=== PATIENT | male | born 1960 | race Caucasian/White ===

== ENCOUNTER 2016-09-04 15:24 | Emergency (ER) | payer MEDICAID ==
[2016-09-04 15:27] VITALS: RESP 16; O2SAT 91
[2016-09-04] MEDS ORDERED: NS 1,000 ML IV ONE (15:39)
--- NOTE | 2016-09-04 15:52 | EDPHY ---
H & P Stated Complaint: seizure today HX of SZ takes keppra Time Seen by Provider: 09/04/16 15:29 HPI/ROS: CHIEF COMPLAINT: Brief episode of altered consciousness HISTORY OF PRESENT ILLNESS: The patient presents to the emergency department after he reportedly had a episode of loss of consciousness while driving in the car with his girlfriend. There was no seizure activity observed although the patient does have a history of seizure disorder. The patient reports he has been compliant with his daily Keppra. The patient also has a history of alcohol dependence. The patient reports minimal alcohol consumption today. The patient denies any complaints of chest pain or shortness of breath. He has no complaints of dyspnea. He denies additional complaints. REVIEW OF SYSTEMS: A comprehensive 10 point review of systems is otherwise negative aside from elements mentioned in the history of present illness. Source: Patient Exam Limitations: No limitations - Personal History Current Tetanus/Diphtheria Vaccine: Unsure Current Tetanus Diphtheria and Acellular Pertussis (TDAP): Unsure Tetanus Vaccine Date: 2012 - Medical/Surgical History Hx Asthma: No Hx Chronic Respiratory Disease: No Hx Diabetes: No Hx Cardiac Disease: Yes Hx Renal Disease: No Hx Cirrhosis: No Hx Alcoholism: Yes Hx HIV/AIDS: No Hx Splenectomy or Spleen Trauma: No Other PMH: Gout, HTN, PE, ?SEIZURE/SYNCOPE, ? OLD STROKE, CHRONIC CIRRHOSIS/ HEPATITIS PANCREATITIS - Social History Smoking Status: Never smoked - Physical Exam Exam: General Appearance: Alert, alcohol on breath, no acute distress, non postictal Eyes: Pupils equal and round no pallor or injection ENT, Mouth: Mucous membranes moist, no tongue bite Respiratory: There are no retractions, lungs are clear to auscultation Cardiovascular: Regular rate and rhythm Gastrointestinal: Abdomen is soft and nontender, no masses, bowel sounds normal Neurological: A&O, normal motor function, normal sensory exam, normal cranial nerves Skin: Warm and dry, no rashes Musculoskeletal: Neck is supple nontender Extremities: symmetrical, full range of motion Constitutional: Initial Vital Signs Temperature (C) 36.8 C 09/04/16 15:25 Heart Rate 77 09/04/16 15:25 Respiratory Rate 16 09/04/16 15:25 Blood Pressure 133/91 H 09/04/16 15:25 O2 Sat (%) 91 L 09/04/16 15:25 O2 Delivery Mode Room Air Allergies/Adverse Reactions: No Known Allergies Allergy (Verified 11/29/15 04:25) Home Medications: Medication Instructions Recorded Atorvastatin Calcium 11/28/15 Indomethacin 11/28/15 Keppra 11/28/15 LEVETIRACETAM 11/28/15 Levetiracetam 11/28/15 Lisinopril 11/28/15 Protonix 11/28/15 Medical Decision Making - Diagnostics EKG Interpretation: EKG: Complete interpretation has been separately recorded in the [employer] archive. Summary impression: Sinus rhythm, rate 73 ED Course/Re-evaluation: The patient presents to the ED after a brief episode of altered consciousness. In the ED, the patient was not postictal. He had a strong smell of alcohol on his breath. The patient's blood alcohol level was over 0.3. The patient's laboratory studies are within normal limits and specifically demonstrate no evidence of an acidosis. The patient's EKG demonstrates no evidence of an arrhythmia. 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 I do feel the patient can be safely discharged home. He will be driven by his girlfriend who has not been drinking today. I feel the etiology of the patient' s presentation today is undoubtedly secondary to his alcohol consumption. I find his neurologic examination to be normal. There is no evidence of any traumatic injury today. The patient will follow up as scheduled with his primary care provider and neurologist. The patient is currently working on his alcoholism and is motivated to decrease his dependence on that drug. Differential Diagnosis: Differential diagnosis considered includes alcohol intoxication, arrhythmia, metabolic abnormality, seizure - Data Points Laboratory Results: Laboratory Results 09/04/16 16:00 09/04/16 16:00 09/04/16 16:00 WBC 4.29 10^3/uL (3.80-9.50) RBC 4.21 L 10^6/uL (4.40-6.38) Hgb 15.0 g/dL (13.7-17.5) Hct 41.4 % (40.0-51.0) MCV 98.3 fL (81.5-99.8) MCH 35.6 H pg (27.9-34.1) MCHC 36.2 g/dL (32.4-36.7) RDW 13.0 % (11.5-15.2) Plt Count 180 10^3/uL (150-400) MPV 9.4 fL (8.7-11.7) Neut % (Auto) 41.8 % (39.3-74.2) Lymph % (Auto) 50.1 H % (15.0-45.0) [facility] % (Auto) 6.5 % (4.5-13.0) Eos % (Auto) 0.5 L % (0.6-7.6) Baso % (Auto) 0.9 % (0.3-1.7) Nucleat RBC Rel Count 0.5 H % (0.0-0.2) Absolute Neuts (auto) 1.79 10^3/uL (1.70-6.50) Absolute Lymphs (auto) 2.15 10^3/uL (1.00-3.00) Absolute Monos (auto) 0.28 L 10^3/uL (0.30-0.80) Absolute Eos (auto) 0.02 L 10^3/uL (0.03-0.40) Absolute Basos (auto) 0.04 10^3/uL (0.02-0.10) Absolute Nucleated RBC 0.02 H 10^3/uL (0-0.01) Immature Gran % 0.2 % (0.0-1.1) Immature Gran # 0.01 10^3/uL (0.00-0.10) Sodium 144 mEq/L (134-144) Potassium 4.0 mEq/L (3.5-5.2) Chloride 107 mEq/L (97-110) Carbon Dioxide 23 mEq/l (22-31) Anion Gap 14 mEq/L (8-16) BUN 6 L mg/dL (7-23) Creatinine 0.5 L mg/dL (0.7-1.3) Estimated GFR > 60 Glucose 99 mg/dL (70-100) Calcium 8.4 L mg/dL (8.5-10.4) Ethyl Alcohol 366 H mg/dL (0-10) Medications Given: Discontinued Medications Sodium Chloride (Ns) 1,000 mls @ 0 mls/hr IV ONCE ONE PRN Reason: Wide Open Stop: 09/04/16 15:40 Last Admin: 09/04/16 16:18 Dose: 1,000 mls Departure - Departure Disposition: Home, Routine, Self-Care Clinical Impression: Alcohol intoxication Condition: Good Instructions: Alcohol Intoxication (ED) Additional Instructions: 1. Please follow-up with your neurologist as scheduled. Referrals: [place],. [Primary Care Provider] - As per Instructions
[2016-09-04 16:08] LABS: % IMMATURE GRANULYOCYTES 0.2 % (0.0-1.1); ABSOLUTE IMMATURE GRANULOCYTES 0.01 10^3/uL (0.00-0.10); ABSOLUTE NRBC COUNT 0.02 10^3/uL (0-0.01); ADD DIFF? NO; ADD MORPH? NO; ADD SCAN? NO; ATYPICAL LYMPHOCYTE FLAG 0 (0-99); FRAGMENT RBC FLAG 0 (0-99); HEMATOCRIT 41.4 % (40.0-51.0); LEFT SHIFT FLG 0 (0-99); LIPEMIA HEMOLYSIS FLAG 90 (0-99); MEAN CELL HEMOGLOBIN 35.6 pg (27.9-34.1); MEAN CELL HEMOGLOBIN CONCENTR. 36.2 g/dL (32.4-36.7); MEAN CELL VOLUME 98.3 fL (81.5-99.8); MEAN PLATELET VOLUME 9.4 fL (8.7-11.7); NRBC-AUTO% 0.5 % (0.0-0.2); PLATELET CLUMPS FLAG 0 (0-99); PLATELET COUNT 180 10^3/uL (150-400); RED BLOOD CELL COUNT 4.21 10^6/uL (4.40-6.38)
[2016-09-04 16:29] LABS: ANION GAP 14 mEq/L (8-16); CALCIUM 8.4 mg/dL (8.5-10.4); CARBON DIOXIDE 23 mEq/l (22-31); CHLORIDE 107 mEq/L (97-110); CREATININE 0.5 mg/dL (0.7-1.3); GLOMERULAR FILTRATION RATE > 60; GLUCOSE 99 mg/dL (70-100); SODIUM 144 mEq/L (134-144)
[2016-09-04 16:39] LABS: ETHANOL SERUM 366 mg/dL (0-10)
[2016-09-04 17:03] VITALS: BP 124/92; PULSE 80; TEMP 97.7
--- NOTE | 2016-09-04 18:21 | CPEKG ---
Heart Rate: 73 RR Interval: 822 P-R Interval: 168 QRSD Interval: 98 QT Interval: 404 QTC Interval: 446 P Mora: 52 QRS Mora: 18 T Wave Mora: 23 EKG Severity - NORMAL ECG - EKG Impression: SINUS RHYTHM Electronically Signed By: Cesar Salcido 05-Sep-2016 09:09:01
== END 2016-09-04 17:44 | disposition home or self-care (01) ==
DX: F10.129 Alcohol abuse with intoxication, unspecified (principal); I10 Essential (primary) hypertension
CPT/HCPCS: G0480